=== PATIENT | female | born 1975 | race Two or more races ===

== ENCOUNTER 2018-03-01 22:08 | Emergency (ER) | payer SELFPAY ==
[~2018-03-01] VITALS: Ht 160 cm; Wt 59.0 kg
[~2018-03-01 22:08] MED LIST: MULT-228 PO; [UNRECOGNIZED DRUG - CODE] PO
[2018-03-01 22:50] LABS: Basophils # (auto) 0.1 uL; Basophils % (auto) 0.7 % (0.0-2.0); Eosinophils # (auto) 0.2 uL; Eosinophils % (auto) 2.3 % (0.0-7.0); Hematocrit 36.9 % (36.0-46.0); Hemoglobin 12.3 g/dL (12.2-16.2); Lymphocytes # (auto) 1.8 uL; Lymphocytes % (auto) 20.8 % (10.0-50.0); Mean Corpuscular Hgb Conc. 33.2 g/dL (32.0-36.0); Mean Corpuscular Volume 81.3 fL (80.0-100.0); Monocytes # (auto) 0.8 uL; Monocytes % (auto) 9.1 % (0.0-12.0); Neutrophils # (auto) 5.7 uL; Neutrophils % (auto) 67.1 % (37.0-80.0); Platelet Count (auto) 331 10^3/uL (140-450); Red Blood Cells 4.55 10^6/uL (4.0-5.20); Red Cell Distribution Width 15.2 % (11.8-14.3); White Blood Cell 8.5 10^3/uL (4.4-10.8)
[2018-03-01 23:03] LABS: INR 0.91 (0.9-1.15); Partial Thromboplastin Time 28.9 sec (23.78-33.04); Prothrombin Time 9.8 sec (9.27-12.13)
[2018-03-01 23:05] LABS: Urine Bacteria NONE SEEN /hpf (None Seen); Urine Blood Negative /uL (Negative); Urine Specific Gravity 1.012 (1.001-1.035); Urine WBC <1 /hpf (0 - 5)
[2018-03-01 23:15] LABS: Alanine Aminotransferase 28 U/L (13-56); Albumin 3.4 g/dL (3.4-5.0); Amylase 73 U/L (25-115); Anion Gap 6 (5-15); Aspartate Aminotransferase 13 U/L (15-37); BUN/Creatinine Ratio 19.4; Blood Urea Nitrogen 13 mg/dL (7-18); Calcium 8.5 mg/dL (8.5-10.1); Carbon Dioxide 28 mmol/L (21-32); Chloride 103 mmol/L (98-107); GFR African American > 60 mL/min; GFR Non-African American > 60 mL/min; Glucose 106 mg/dL (74-106); Lipase 172 U/L (73-393); Magnesium 2.2 mg/dL (1.6-2.6); Potassium 3.6 mmol/L (3.5-5.1); Sodium 137 mmol/L (136-145)
[2018-03-01 23:18] LABS: Alkaline Phosphatase 63 U/L (45-117); Bilirubin, Total 0.2 mg/dL (0.2-1.0); Total Protein 7.7 g/dL (6.4-8.2)
[2018-03-02] MEDS ORDERED: SODIUM CHLORIDE 0.9% 1,000 ML IVB ONE (07:47)
[2018-03-02] MEDS ORDERED: KETOROLAC TROMETH 30 MG/ML 1ML VIAL IV ONE (08:00)
[2018-03-02] MEDS ORDERED: PROMETHAZINE HCL 25 MG/ML 1ML IV PRN (08:00)
[2018-03-02 11:53] VITALS: BP 108/75
[2018-03-02] MEDS ORDERED: cefTRIAXone W LIDOCAINE 1 GM IM IM ONE (13:45)
== END 2018-03-02 14:08 | disposition home or self-care (01) ==
LOC: ER 22:08
DX: R10.30 Lower abdominal pain, unspecified (principal); I10 Essential (primary) hypertension; G44.209 Tension-type headache, unspecified, not intractable; D25.1 Intramural leiomyoma of uterus; N73.9 Female pelvic inflammatory disease, unspecified; Z88.6 Allergy status to analgesic agent; Z88.0 Allergy status to penicillin
CPT/HCPCS: 36415; 71046; 76830; 76856; 80053; 81001; 81025; 82150; 83690; 83735; 84443; 85025; 85610; 85730; 93005; 96372; 96374; 96375; 99284; J0696; J1885; J2550; J7030